=== PATIENT | female | born 1970 | race Two or more races ===

== ENCOUNTER 2020-10-28 06:53 | Emergency (ER) | payer OTHER ==
[~2020-10-28] VITALS: Ht 167.6 cm; Wt 63.5 kg
== END 2020-10-28 13:43 | disposition home or self-care (01) ==
LOC: ER 06:53
DX: K29.70 Gastritis, unspecified, without bleeding (principal)

== ENCOUNTER 2023-01-10 13:42 | Emergency (ER) | payer OTHER ==
[~2023-01-10] VITALS: Ht 167.6 cm; Wt 71.7 kg
[2023-01-10 17:14] LABS: HEMATOCRIT 36.7 % (36.0-45.00); MEAN CELL VOLUME 87.4 fL (80.00-100.00); MEAN CORPUSCULAR HEMOGLOBIN 28.6 pg (27.00-32.0); MEAN CORPUSCULAR HGB CONC 32.7 g/dl (32.0-36.0); PLATELET COUNT 309 K/uL (150-450); RED CELL DISTRIBUTION WIDTH 14.6 % (11.5-14.5)
== END 2023-01-10 18:49 | disposition home or self-care (01) ==
LOC: ER 13:42
PROVIDERS: General Practice
DX: R30.0 Dysuria (principal); N39.0 Urinary tract infection, site not specified; B96.29 Other Escherichia coli [E. coli] as the cause of diseases classified elsewhere